=== PATIENT | female | born 1950 | race African-American/Black ===

== ENCOUNTER 2017-08-21 15:37 | Emergency (ER) | payer MEDICARE, MEDICAID ==
[~2017-08-21] VITALS: Ht 162.6 cm; Wt 80.0 kg
[2017-08-21 16:35] LABS: HEMATOCRIT. 43.1 % (36.0-48.0); HEMOGLOBIN. 13.7 g/dL (12.0-16.0); MEAN CORPUSCULAR HEMOGLOBIN 26.7 pg (28.0-32.0); MEAN CORPUSCULAR VOLUME 84.3 fL (81.0-99.0); MEAN PLATELET VOLUME 9.2 fl (7.4-10.4); PLATELET 196 x1000/uL (130-400); RED BLOOD CELL COUNT 5.12 mill/uL (4.2-5.4); RED CELL DISTRIBUTION WIDTH 16.5 % (11.6-14.6)
[2017-08-21 16:44] LABS: CARBON DIOXIDE 25 mEq/L (21-32); CHLORIDE 110 mEq/L (98-107); ETHANOL BLOOD < 10 mg/dL
[2017-08-21 16:48] LABS: PROTHROMBIN TIME 10.7 sec (9.4-11.6)
[2017-08-21 16:52] LABS: TROPONIN I < 0.02 ng/mL (0.00-0.04)
[2017-08-21 17:12] LABS: ATYPICAL LYMPHOCYTES 2; PLATELET ESTIMATE NORMAL
[2017-08-21 20:35] VITALS: BP 147/94
== END 2017-08-21 20:56 | disposition home or self-care (01) ==
LOC: ER 15:45 → CANBEDREQ 18:06 → ER 20:56
DX: I63.9 Cerebral infarction, unspecified (principal); G35 Multiple sclerosis; I10 Essential (primary) hypertension; E11.9 Type 2 diabetes mellitus without complications; F03.90 Unspecified dementia, unspecified severity, without behavioral disturbance, psychotic disturbance, mood disturbance, and anxiety; E78.00 Pure hypercholesterolemia, unspecified; F32.9 Major depressive disorder, single episode, unspecified; Z88.0 Allergy status to penicillin; Z86.73 Personal history of transient ischemic attack (TIA), and cerebral infarction without residual deficits
CPT/HCPCS: 36415; 70450; 71010; 80053; 84484; 85025; 85610; 93005; 99285; G0482; A4315